=== PATIENT | male | born 1965 | race African-American/Black ===

== ENCOUNTER → 2023-02-06 | Outpatient (CLI) | payer BC ==
[2023-02-07 08:06] LABS: PSA Free 0.92 ng/mL; Prostate Specific Antigen 5.9 ng/mL (0.0-4.0)
== END | disposition home or self-care (01) ==
LOC: LAB 12:55
DX: R35.0 Frequency of micturition (principal); R97.20 Elevated prostate specific antigen [PSA]
CPT/HCPCS: 84153; 84154